=== PATIENT | female | born 1955 | race Caucasian/White ===

== ENCOUNTER → 2022-12-03 06:00 | Outpatient (CLI) | payer OTHER ==
[~2022-12-03] VITALS: Ht 162.6 cm; Wt 79.8 kg
[~2022-12-03 06:00] MED LIST: CLONAZEPAM0.125 MG PO; GABAPENTIN800 M1 PO; NOVOLOG MI100 UNIT/1; PAXIL20 MG PO; RESTORIL7.5 MG PO; ZESTRIL20 MG PO; ZOCOR20 MG PO
== END | disposition home or self-care (01) ==
LOC: LAB 06:00 → EDSTATUS 12-09 12:00 → SURG 12-09 12:21
PROVIDERS: ATTEND Colon & Rectal Surgery
DX: Z01.818 Encounter for other preprocedural examination (principal); Z20.822 Contact with and (suspected) exposure to COVID-19

== ENCOUNTER → 2023-06-19 06:00 | Outpatient (CLI) | payer OTHER ==
[~2023-06-19] VITALS: Ht 160 cm; Wt 75.3 kg
[~2023-06-19 06:00] MED LIST changes: +ANASTROZOLE1 MG PO; +FAMOTIDINE40 MG PO; +OMEPRAZOLE40 MG PO
== END | disposition home or self-care (01) ==
LOC: LAB 06:00 → EDSTATUS 06-23 09:00 → SURG 06-23 09:00
PROVIDERS: ATTEND Colon & Rectal Surgery
DX: K92.1 Melena (principal); K57.32 Diverticulitis of large intestine without perforation or abscess without bleeding; I10 Essential (primary) hypertension

== ENCOUNTER 2023-06-21 13:26 | Inpatient (IN) | payer OTHER ==
[~2023-06-21] VITALS: Ht 162.6 cm; Wt 167.8 kg
[~2023-06-21 13:26] MED LIST changes: -ANASTROZOLE1 MG PO; -FAMOTIDINE40 MG PO; -OMEPRAZOLE40 MG PO
[2023-06-21] MEDS ORDERED: ANASTROZOLE1 MG PO (13:53)
[2023-06-21] MEDS ORDERED: FAMOTIDINE40 MG PO (13:53)
[2023-06-21] MEDS ORDERED: OMEPRAZOLE40 MG PO (13:53)
[2023-06-21 16:27] LABS: MEAN CELL VOLUME 103.2 fL (80.00-100.00); MEAN CORPUSCULAR HGB CONC 34.7 g/dl (32.0-36.0); RED BLOOD COUNT 2.08 M/uL (4.00-6.00); RED CELL DISTRIBUTION WIDTH 13.7 % (11.5-14.5)
[2023-06-21 16:33] LABS: HEMATOCRIT 21.4 % (36.0-45.00)
[2023-06-21 16:34] LABS: HEMOGLOBIN 7.5 g/dL (12.0-15.00); PLATELET COUNT 96 K/uL (150-450)
[2023-06-21 16:36] LABS: INR 0.96; PARTIAL THROMBOPLASTIN TIME 25.6 SECONDS (22.0-34.0); PROTHROMBIN TIME 10.1 SECONDS (9.0-11.5)
[2023-06-21 16:40] LABS: ALBUMIN 3.5 gm/dL (3.4-5.0); ALKALINE PHOSPHATASE 69 U/L (50-136); ALT/SGPT 22 U/L (12-78); ANION GAP 12 (10.0-20.0); AST/SGOT 17 U/L (15-37); BILIRUBIN TOTAL 0.22 mg/dL (0.3-1.2); BILIRUBIN,CONJUGATED < 0.10 mg/dL (0.0-0.2); BILIRUBIN,UNCONJUGATED 0.12 mg/dL (0.0-0.6); BLOOD UREA NITROGEN 35 mg/dL (7-18); BUN CREA RATIO 19 (7.0-25.0); CALCIUM 8.7 mg/dL (8.5-10.1); CARBON DIOXIDE 24 mEq/L (21-32); CHLORIDE 108 mmol/L (98-107); CREATININE SERUM 1.89 mg/dL (0.55-1.02); GFR 26.29; GLUCOSE FASTING 173 mg/dL (65-100); OSMOLALITY SERUM 292 MOSM/KG (275-295); POTASSIUM 4.26 mEq/L (3.5-5.1); SODIUM 140 mmol/L (136-145); TOTAL PROTEIN 6.6 gm/dL (6.4-8.2)
[2023-06-21 18:15] LABS: PH,URINE 5.5 (5.0-8.0); URINE APPEARANCE Clear; URINE BILIRRUBIN Negative (NEGATIVE); URINE BLOOD Negative; URINE COLOR Yellow; URINE GLUCOSE Negative (NEGATIVE); URINE LEUKOCYTE Negative; URINE NITRATE Negative; URINE PROTEIN Negative (NEGATIVE); URINE UROBILINOGEN 0.2 E.U./dl
[2023-06-21 18:18] LABS: URINE WBC 1.8 uL (0.0-23.2)
[2023-06-21 18:22] LABS: URINE BACTERIA 2.5 uL (0.0-1933)
[2023-06-23 13:16] LABS: HEMATOCRIT 26.3 % (36.0-45.00); MEAN CELL VOLUME 96.6 fL (80.00-100.00); MEAN CORPUSCULAR HGB CONC 35.2 g/dl (32.0-36.0); RED BLOOD COUNT 2.73 M/uL (4.00-6.00)
[2023-06-23 13:28] LABS: ALBUMIN 3.4 gm/dL (3.4-5.0); BILIRUBIN TOTAL 0.71 mg/dL (0.3-1.2); CALCIUM 8.7 mg/dL (8.5-10.1); CREATININE SERUM 1.8 mg/dL (0.55-1.02); GFR 27.82; GLOBULINA 2.5 G/DL (2.4-3.5); POTASSIUM 4.43 mEq/L (3.5-5.1); TOTAL PROTEIN 5.9 gm/dL (6.4-8.2)
[2023-06-23 14:15] LABS: PLATELET COUNT 85 K/uL (150-450)
[2023-06-23 14:16] LABS: HEMOGLOBIN 9.3 g/dL (12.0-15.00)
[2023-06-23 14:17] LABS: RED CELL DISTRIBUTION WIDTH 17.2 % (11.5-14.5)
== END 2023-06-23 17:57 | disposition home or self-care (01) | DRG 812 ==
LOC: ER 13:27 → SEC-K 23:00 → SURH 23:00
PROVIDERS: General Practice; ADMIT Internal Medicine; ATTEND Internal Medicine
PROC: BW21YZZ Computerized Tomography (CT Scan) of Abdomen and Pelvis using Other Contrast (ICD-10-PCS; principal; 2023-06-21)
PROC: 4A12X4Z Monitoring of Cardiac Electrical Activity, External Approach (ICD-10-PCS; 2023-06-22)
PROC: 30233N1 Transfusion of Nonautologous Red Blood Cells into Peripheral Vein, Percutaneous Approach (ICD-10-PCS; 2023-06-22)
DX: D64.89 Other specified anemias (principal); K57.32 Diverticulitis of large intestine without perforation or abscess without bleeding; N17.8 Other acute kidney failure; D61.818 Other pancytopenia; E86.0 Dehydration; E11.65 Type 2 diabetes mellitus with hyperglycemia; Z79.4 Long term (current) use of insulin; D72.819 Decreased white blood cell count, unspecified; I10 Essential (primary) hypertension